=== PATIENT | female | born 1955 | race Two or more races ===

== ENCOUNTER 2022-10-25 14:07 | Emergency (ER) | payer OTHER ==
[~2022-10-25] VITALS: Ht 157.5 cm; Wt 108.9 kg
[~2022-10-25 14:07] MED LIST: HYZAAR 50/12.51 TAB; NORVASC5 MG PO
[2022-10-25] MEDS ORDERED: MECLIZINE HCL25 MG PO (18:04)
== END 2022-10-25 18:22 | disposition home or self-care (01) ==
LOC: ER 14:07
DX: R42 Dizziness and giddiness (principal); I10 Essential (primary) hypertension; Z88.8 Allergy status to other drugs, medicaments and biological substances